=== PATIENT | male | born 1955 | race American Indian/Alaskan Native ===

== ENCOUNTER 2016-10-06 15:05 | Outpatient (CLI) | payer OTHER | END 2016-10-06 15:06 | disposition home or self-care (01) | LOC: LABHHL 15:05 | PROVIDERS: ATTEND Internal Medicine Gastroenterology | DX: Z12.11 Encounter for screening for malignant neoplasm of colon (principal); Z85.46 Personal history of malignant neoplasm of prostate | CPT/HCPCS: 88305 ==